=== PATIENT | female | born 2005 | race Caucasian/White ===

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

== ENCOUNTER 2025-10-26 11:42 | Outpatient (CLI) | payer BC | END 2025-10-26 11:43 | disposition home or self-care (01) | LOC: SCSRAD 11:42 | PROVIDERS: ATTEND Internal Medicine | DX: M25.561 Pain in right knee (principal) ==